=== PATIENT | male | born 1985 | race Caucasian/White ===

== ENCOUNTER 2017-06-30 20:31 | Emergency (ER) | payer OTHER, MEDICAID ==
[~2017-06-30 20:31] MED LIST: DICL75 PO; VIAG100T PO
[2017-06-30 20:32] VITALS: BP 143/84; PULSE 75; RESP 16; TEMP 98.8; O2SAT 97
--- NOTE | 2017-07-01 01:07 | PD ---
HPI Chief Complaint: Fall Time Seen by Provider: 00:26 Travel History International Travel<30 days: No Contact w/Intl Traveler<30days: No Traveled to known affect area: No History of Present Illness HPI Patient is a 32-year-old male with history of mild learning disability presents emergency department after having a fall at work earlier today. Patient states he slipped and fell backwards and impacted his back on the running board of a car. He works at a car [employer]. He denies any chest pain shortness of breath headache injury loss of consciousness extremity pain. Only complains of left-sided low back pain. Denies any dysuria denies any focalized weakness. States symptoms are mild, low back, context as above, associated signs symptoms as above. PFSH Past Medical History Diabetes: No Patient Takes Glucophage: No Diminished Hearing: No Immunizations Current: Yes Tetanus Vaccination: > 5 Years Influenza Vaccination: No Past Surgical History Neurologic Surgery: Yes (brain surgery as ) Social History Alcohol Use: No Tobacco Use: No Substance Use: No Allergies-Medications (Allergen,Severity, Reaction): Coded Allergies: promethazine (Unverified Allergy, Severe, Restlessness, 07/01/17) Reported Meds & Prescriptions Reported Meds & Active Scripts Active No Active Prescriptions or Reported Medications Review of Systems Except as stated in HPI: all other systems reviewed are Neg Physical Exam Narrative GENERAL: Well-developed well-nourished no obvious distress SKIN: Focused skin assessment warm/dry. HEAD: Atraumatic. Normocephalic. EYES: Pupils equal and round. No scleral icterus. No injection or drainage. ENT: No nasal bleeding or discharge. Mucous membranes pink and moist. NECK: Trachea midline. No JVD. CARDIOVASCULAR: Regular rate and rhythm. No murmur appreciated. RESPIRATORY: No accessory muscle use. Clear to auscultation. Breath sounds equal bilaterally. GASTROINTESTINAL: Abdomen soft, non-tender, nondistended. Hepatic and splenic margins not palpable. MUSCULOSKELETAL: No obvious deformities. No clubbing. No cyanosis. No edema. There is a small bruise left midline in the patient's low back lumbar low thoracic area. No midline tenderness, no midline CT or L-spine tenderness. Extremities atraumatic. Full nontender range of motion of all extremities. NEUROLOGICAL: Awake and alert. No obvious cranial nerve deficits. Motor grossly within normal limits. Normal speech. PSYCHIATRIC: Appropriate mood and affect; insight and judgment normal. Data Data Last Documented VS Vital Signs Date Time Temp Pulse Resp B/P (MAP) Pulse Ox O2 Delivery O2 Flow Rate FiO2 07/01/17 02:27 07/01/17 01:12 68 16 99 Room Air 06/30/17 20:32 98.8 Orders Orders Chest, Pa & Lat (07/01/17 ) Spine, Thoracic-Ap/Lat/Sw(3vw) (07/01/17 ) Ed Discharge Order (07/01/17 02:21) MDM Medical Decision Making Medical Screen Exam Complete: Yes Emergency Medical Condition: Yes Differential Diagnosis Back contusion, back fracture likely, rib fracture unlikely. Narrative Course Patient roomed emergency department, appears well in no obvious distress, x- rays negative. Patient reassured, discussed symptomatic management follow-up the primary care physician. He is stable for discharge. Last 24 hours Impressions Thoracic Spine X-Ray 07/01/17 0000 Signed Impressions: Service Date/Time: Saturday, July 01, 2017 01:36 - CONCLUSION: 1. There is no evidence of acute fracture. Nakul Lizarraga MD Chest X-Ray 07/01/17 0000 Signed Impressions: Service Date/Time: Saturday, July 01, 2017 01:33 - CONCLUSION: 1. No acute cardiopulmonary disease. Nakul Lizarraga MD Diagnosis Primary Impression: Back contusion Qualified Codes: S20.222A - Contusion of left back wall of thorax, initial encounter Patient Instructions: General Instructions, RICE Therapy (ED) Scripts No Active Prescriptions or Reported Meds Disposition: DISCHARGE HOME Condition: Stable Victor Manuel Silva MD Jul 01, 2017 01:07
[2017-07-01 01:12] VITALS: BP 117/75; PULSE 68; RESP 16; O2SAT 99
--- NOTE | 2017-07-01 02:08 | RADRPT ---
EXAM DATE/TIME: 07/01/2017 01:33 [facility] COMPARISON: No previous studies available for comparison. INDICATIONS : Chest pain. MEDICAL HISTORY : None. SURGICAL HISTORY : None. ENCOUNTER: Initial ACUITY: 1 day PAIN SCORE: 07/02 LOCATION: Bilateral chest FINDINGS: PA and lateral views of the chest demonstrate the lungs to be symmetrically aerated without evidence of mass, infiltrate or effusion. The cardiomediastinal contours are unremarkable. Osseous structure s are intact. CONCLUSION: 1. No acute cardiopulmonary disease. Nakul Lizarraga MD on July 01, 2017 at 2:06 Board Certified Radiologist. This report was verified electronically.
--- NOTE | 2017-07-01 02:09 | RADRPT ---
EXAM DATE/TIME: 07/01/2017 01:36 [facility] COMPARISON: No previous studies available for comparison. INDICATIONS : Back pain post fall today. MEDICAL HISTORY : None. SURGICAL HISTORY : None. ENCOUNTER: Initial ACUITY: 1 day PAIN SCORE: 5/10 LOCATION: thoracic spine. FINDINGS: There is normal alignment of the thoracic vertebral bodies. Vertebral body height is maintained. No evidence of fracture or subluxation. Pedicles are intact at all levels. The paravertebral reflecti ons are not thickened. CONCLUSION: 1. There is no evidence of acute fracture. Nakul Lizarraga MD on July 01, 2017 at 2:06 Board Certified Radiologist. This report was verified electronically.
== END 2017-07-01 02:34 | disposition home or self-care (01) ==
LOC: NEPE 20:31
DX: S20.222A Contusion of left back wall of thorax, initial encounter (principal); W01.0XXA Fall on same level from slipping, tripping and stumbling without subsequent striking against object, initial encounter; Y93.02 Activity, running; Y92.89 Other specified places as the place of occurrence of the external cause; Y99.0 Civilian activity done for income or pay
CPT/HCPCS: 71046; 72072; 99283

== ENCOUNTER 2017-08-04 23:09 | Emergency (ER) | payer MEDICAID, OTHER ==
[~2017-08-04] VITALS: Ht 172.7 cm; Wt 104.0 kg
[2017-08-04 23:11] VITALS: BP 158/88; PULSE 82; RESP 16; TEMP 97.9; O2SAT 99
[2017-08-04] MEDS ORDERED: CLEO300C2 PO (23:24)
[2017-08-04] MEDS ORDERED: NORC5TAB PO (23:24)
[2017-08-04] MEDS ORDERED: ACETAMINOPHEN/HYDROcodone 325 MG/5 MG TAB PO ONE (23:30)
[2017-08-04] MEDS ORDERED: CLINDAMYCIN 150 MG CAP PO ONE (23:30)
--- NOTE | 2017-08-04 23:30 | PD ---
HPI Chief Complaint: Oral / Dental Pain or Problem Time Seen by Provider: 23:17 Travel History International Travel<30 days: No Contact w/Intl Traveler<30days: No Traveled to known affect area: No History of Present Illness HPI 32-year-old white male presents to emergency department with complaints of dental pain. The patient states that he saw a dentist last week was put on Pen- Vee K. He has not had any improvement symptoms. Patient states that he's been having persistent severe pain. He denies any facial swelling. No fever chills. No alleviating factors. No exacerbating factor. PFSH Past Medical History Narrative Medical Head injury Diabetes: No Diminished Hearing: No Gastrointestinal Disorders: Yes (FATTY LIVER) Immunizations Current: Yes Triglycerides - High: Yes Tetanus Vaccination: Unknown Influenza Vaccination: No Past Surgical History Neurologic Surgery: Yes (brain surgery as ) Social History Alcohol Use: No Tobacco Use: No Substance Use: No Allergies-Medications (Allergen,Severity, Reaction): Coded Allergies: promethazine (Unverified Allergy, Severe, Restlessness, 07/01/17) Reported Meds & Prescriptions Reported Meds & Active Scripts Active [place] (Hydrocodone-Acetaminophen) 5 Mg-325 Mg Tab 1 Tab PO Q6H PRN Cleocin (Clindamycin HCl) 300 Mg Cap 300 Mg PO Q6H 7 Days Review of Systems Except as stated in HPI: all other systems reviewed are Neg Physical Exam Narrative GENERAL: Well-developed, well-nourished in no acute distress. Nontoxic appearing. HEAD: Normocephalic, atraumatic. EYES: Pupils equal round and reactive. Extraocular motions intact. No scleral icterus. No injection or drainage. ENT: TMs clear without erythema. The external auditory canals clear. Nose: clear . Posterior pharynx is pink and moist. No tonsillar edema or exudate. Uvula midline. Airway patent. Patient has a large dental carry in tooth #18. The tooth also has a filling in it. Tenderness to percussion. No facial swelling. NECK: Trachea midline.Supple, nontender, moves head freely. No central bony tenderness or spasm. CARDIOVASCULAR: Regular rate and rhythm without murmurs, gallops, or rubs. RESPIRATORY: Clear to auscultation. Breath sounds equal bilaterally. No wheezes , rales, or rhonchi. GASTROINTESTINAL: Abdomen soft, non-tender, nondistended. No hepato-splenomegaly , or palpable masses. No guarding. EXTREMITIES: No clubbing, cyanosis, or edema. No joint tenderness, effusion, or edema noted. BACK: Nontender without deformity or crepitance. No flank tenderness. Data Data Last Documented VS Vital Signs Date Time Temp Pulse Resp B/P (MAP) Pulse Ox O2 Delivery O2 Flow Rate FiO2 08/04/17 23:11 97.9 82 16 158/88 (111) 99 Room Air Orders Orders Clindamycin (Cleocin) (08/04/17 23:30) Acetamin-Hydrocod 325-5 Mg ([place] 5-325 (08/04/17 23:30) Ed Discharge Order (08/04/17 23:24) [facility] Medical Decision Making Medical Screen Exam Complete: Yes Emergency Medical Condition: Yes Medical Record Reviewed: Yes Differential Diagnosis MDM: Moderate Differential diagnoses: Dental abscess, dental caries, osteitis, cellulitis Narrative Course Patient's given vancomycin 300 mg by mouth and one norco 5 mg by mouth. This is dental caries, dentalgia Diagnosis Primary Impression: dental caries Additional Impression: Dentalgia Patient Instructions: Narcotic given in the ED, General Instructions Additional Instructions: Rest. Saltwater gargles. [place] oil on cotton balls. 3 Advil every 6 hours. Clindamycin and Lortab. follow-up with a dentist as soon as possible. And return to the ER if any problems. Med/Other Pt SpecificInfo: Prescription(s) given Scripts Hydrocodone-Acetaminophen ([place]) 5 Mg-325 Mg Tab 1 TAB PO Q6H Y for PAIN, #10 TAB 0 Refills Prov: Frank Hernandez MD 08/04/17 Clindamycin (Cleocin) 300 Mg Cap 300 MG PO Q6H for Infection for 7 Days, #28 CAP 0 Refills Prov: Frank Hernandez MD 08/04/17 Disposition: 01 DISCHARGE HOME Condition: Stable Umberto Sánchez Aug 04, 2017 23:30
== END 2017-08-04 23:55 | disposition home or self-care (01) ==
LOC: NEPD 23:09
DX: K02.9 Dental caries, unspecified (principal); Z88.8 Allergy status to other drugs, medicaments and biological substances
CPT/HCPCS: 99283